=== PATIENT | male | born 1955 | race Caucasian/White ===

== ENCOUNTER 2017-10-10 08:43 | Day surgery (SDC) | payer OTHER ==
[~2017-10-10 08:43] MED LIST: ceFAZolin SODIUM 1 GM VIAL IVPB ONE
[2017-10-10 09:04] VITALS: BMI 28.8
--- NOTE | 2017-10-10 09:22 | PDOC ---
History of Present Illness - General History Source: Patient Exam Limitations: No Limitations - History of Present Illness Initial Comments: 10/10/17 09:38 The patient is a 61 year old male with a significant PMH of hyperlipidemia who was sent in by Dr. Osborn to the emergency department for pre-op. The patient states he is having surgery today to remove the hernia he has had over the past 7 months. The patient denies any pain at this time. The patient denies chest pain, shortness of breath, headache and dizziness. Denies fever, chills, nausea, vomit, diarrhea and constipation. Denies dysuria, frequency, urgency and hematuria. Allergies: NKA Past surgical history: None reported. Social history: No reported alcohol, drug, or cigarette use. <Opal Jones - Last Filed: 10/10/17 09:43> <Rayne Charles - Last Filed: 10/10/17 12:00> - General Chief Complaint: Pain, Acute Stated Complaint: SEND BY MD FOR PRE OP Time Seen by Provider: 10/10/17 09:21 Past History <Opal Jones - Last Filed: 10/10/17 09:43> - Past Medical History Hypercholesterolemia: Yes - Surgical History Abdominal Surgery: Yes Appendectomy: Yes - Suicide/Smoking/Psychosocial Hx Smoking History: Never smoked Hx Alcohol Use: No Substance Use Type: None <Rayne Charles - Last Filed: 10/10/17 12:00> - Past Medical History Allergies/Adverse Reactions: Allergies Allergy/AdvReac Type Severity Reaction Status Date / Time No Known Allergies Allergy Verified 10/10/17 09:02 Home Medications: Ambulatory Orders Cyclobenzaprine HCl [Flexeril] 5 mg PO TID PRN #12 tablet 02/12/15 Review of Systems - Review of Systems Able to Perform ROS?: Yes Comments:: 10/10/17 09:40 GENERAL/CONSTITUTIONAL: No fever or chills. No weakness. HEAD, EYES, EARS, NOSE AND THROAT: No change in vision. No ear pain or discharge. No sore throat. CARDIOVASCULAR: No chest pain or shortness of breath. RESPIRATORY: No cough, wheezing, or hemoptysis. GASTROINTESTINAL: (+) Hernia. No nausea, vomiting, diarrhea or constipation. GENITOURINARY: No dysuria, frequency, or change in urination. MUSCULOSKELETAL: No joint or muscle swelling or pain. No neck or back pain. SKIN: No rash NEUROLOGIC: No headache, vertigo, loss of consciousness, or change in strength/ sensation. ENDOCRINE: No increased thirst. No abnormal weight change. HEMATOLOGIC/LYMPHATIC: No anemia, easy bleeding, or history of blood clots. ALLERGIC/IMMUNOLOGIC: No hives or skin allergy. <Opal Jones - Last Filed: 10/10/17 09:43> *Physical Exam - Vital Signs Last Vital Signs Temp Pulse Resp BP Pulse Ox 98 F 68 19 128/87 97 10/10/17 09:02 10/10/17 09:02 10/10/17 09:02 10/10/17 09:02 10/10/17 09:02 <Opal Jones - Last Filed: 10/10/17 09:43> - Vital Signs Last Vital Signs Temp Pulse Resp BP Pulse Ox 98 F 68 19 128/87 97 10/10/17 09:02 10/10/17 09:02 10/10/17 09:02 10/10/17 09:02 10/10/17 09:02 - Physical Exam Comments: GENERAL: Awake, alert, and fully oriented, in no acute distress HEAD: No signs of trauma EYES: PERRLA, EOMI, sclera anicteric, conjunctiva clear ENT: Auricles normal inspection, hearing grossly normal, nares patent, oropharynx clear without exudates. Moist mucosa NECK: Normal ROM, supple, no lymphadenopathy, JVD, or masses LUNGS: Breath sounds equal, clear to auscultation bilaterally. No wheezes, and no crackles HEART: Regular rate and rhythm, normal S1 and S2, no murmurs, rubs or gallops ABDOMEN: Soft, nontender, normoactive bowel sounds. No guarding, no rebound. No masses EXTREMITIES: Normal range of motion, no edema. No clubbing or cyanosis. No cords, erythema, or tenderness NEUROLOGICAL: Cranial nerves II through XII grossly intact. Normal speech, normal gait SKIN: Warm, Dry, normal turgor, no rashes or lesions noted. : +Left-sided inguinal hernia, nontender. <Rayne Charles - Last Filed: 10/10/17 12:00> ED Treatment Course - LABORATORY CBC & Chemistry Diagram: 10/10/17 09:44 10/10/17 09:44 <Rayne Charles - Last Filed: 10/10/17 12:00> Medical Decision Making - Medical Decision Making 10/10/17 10:46 Case d/w Dr. Osborn. [facility]. <Rayne Charles - Last Filed: 10/10/17 12:00> *DC/Admit/Observation/Transfer - Attestations Scribe Attestion: 10/10/17 09:44 Documentation prepared by Opal Jones, acting as medical center director for Rayne Charles MD. <Opal Jones - Last Filed: 10/10/17 09:43> - Discharge Dispostion Admit: Yes <Rayne Charles - Last Filed: 10/10/17 12:00> Diagnosis at time of Disposition: Inguinal hernia Qualifiers: Obstruction and gangrene presence: without obstruction or gangrene Laterality: unilateral Recurrence: not specified as recurrent Qualified Code(s): K40.90 - Unilateral inguinal hernia, without obstruction or gangrene, not specified as recurrent - Discharge Dispostion Condition at time of disposition: Stable
[2017-10-10 10:12] LABS: EOS % 1.4 % (0-4.5); HEMATOCRIT 44.9 % (35.4-49); HEMOGLOBIN 15.2 GM/dL (11.7-16.9); LYMPH % 40.7 % (8-40); MCHC 33.9 g/dl (32.0-35.9); MEAN CELL VOLUME 91.4 fl (80-96); MEAN PLT VOLUME 9.6 fl (7.5-11.1); MONO % 5.8 % (3.8-10.2); NEUT % 51.1 % (42.8-82.8); PLATELET COUNT 216 K/MM3 (134-434); RBC 4.91 M/mm3 (4.00-5.60); RDW 13.7 % (11.9-15.9); WHITE BLOOD COUNT 7.5 K/mm3 (4.0-10.0)
[2017-10-10 10:22] LABS: INR 1.09 (0.82-1.09); PROTHROMBIN TIME (PATIENT) 12.3 SEC (9.98-11.88)
[2017-10-10 10:25] LABS: ACTIVATED PTT 32.9 SECONDS (26.9-34.4)
[2017-10-10 10:37] LABS: ALBUMIN 4.3 g/dl (3.4-5.0); ANION GAP 8 (8-16); BILIRUBIN,TOTAL 0.8 mg/dL (0.2-1.0); BLOOD UREA NITROGEN 16 mg/dL (7-18); CALCIUM 8.7 mg/dL (8.5-10.1); CHLORIDE 107 mmol/L (98-107); CO2 24 mmol/L (21-32); CREATININE 0.7 mg/dL (0.7-1.3); GLUCOSE,RANDOM 89 mg/dL (74-106); POTASSIUM 4.1 mmol/L (3.5-5.1); SGOT/AST 20 U/L (15-37); SGPT/ALT 36 U/L (12-78); SODIUM 139 mmol/L (136-145); TOT PROT 7.4 g/dl (6.4-8.2)
[2017-10-10 10:38] LABS: ALK PHOS 85 U/L (45-117)
--- NOTE | 2017-10-10 14:51 | HP ---
Satellite [facility] - Chief Complaint Chief Complaint: Left groin pain History Source: Patient, Medical Record Limitations to Obtaining History: No Limitations - Past Medical History Allergies/Adverse Reactions: Allergies Allergy/AdvReac Type Severity Reaction Status Date / Time No Known Allergies Allergy Verified 10/10/17 09:02 - Current Medications Current Medications: Home Medications Medication Instructions Recorded Docusate Sodium [Colace -] 100 mg PO TID #90 capsule 10/10/17 Oxycodone HCl/Acetaminophen 1 - 2 tab PO Q6H #28 tab MDD 4 10/10/17 [Percocet 5-325 mg Tablet] Satellite Physical Exam - Physical Examination Vital Signs: Vital Signs Period Temp Pulse Resp BP Sys/Ceron Pulse Ox Last 24 Hr 98 F 68 19 128/87 97-100 General Appearance: Calm Lung: Clear to auscultation Heart: Regular rate & rhythm Abdomen: Soft, Other (Left inguinal hernia with tenderness) Neurological: Alert, Oriented Satellite Impression/Plan - Impression/Plan Impression: Left inguinal hernia with tenderness Operative Procedure: Robotic left inguinal hernia repair with mesh Date to be Performed: 10/10/17
[2017-10-10] MEDS ORDERED: oxyCODONE HCL 5 MG TABLET PO PRN ×2 (14:52)
[2017-10-10] MEDS ORDERED: ONDANSETRON 4 MG/2 ML VIAL IVPUSH PRN (14:52)
[2017-10-10] MEDS ORDERED: DEXAMETHASONE SOD PHOSPHATE 4 MG/1 ML VIAL ONE (14:56)
[2017-10-10] MEDS ORDERED: LIDOCAINE HCL 2% 100 MG/5 ML DISP.SYRIN ONE (14:56)
[2017-10-10] MEDS ORDERED: fentaNYL CITRATE 250 MCG/5 ML VIAL ONE (14:56)
[2017-10-10] MEDS ORDERED: ROCURONIUM BROMIDE 50 MG/5 ML VIAL ONE ×2 (14:57→16:44)
[2017-10-10] MEDS ORDERED: PROPOFOL 20 ML ONE (14:57)
[2017-10-10] MEDS ORDERED: MIDAZOLAM HCL 2 MG/2 ML SINGLE DOSE VIAL ONE (14:57)
[2017-10-10] MEDS ORDERED: LACTATED RINGERS SOLUTION 1,000 ML IV SCH (15:00)
[2017-10-10] MEDS ORDERED: ePHEDrine SULFATE 50 MG/1 ML AMPULE ONE (15:55)
[2017-10-10] MEDS ORDERED: ceFAZolin SODIUM 1 GM VIAL ONE (16:02)
[2017-10-10] MEDS ORDERED: ceFAZolin SODIUM 1 GM VIAL IVPB ONE (16:05)
[2017-10-10] MEDS ORDERED: NEOSTIGMINE METHYLSULFATE 0.5 MG/ML - 10 ML MDV ONE (17:06)
[2017-10-10] MEDS ORDERED: GLYCOPYRROLATE 0.2 MG/1 ML VIAL ONE ×2 (17:06→17:12)
--- NOTE | 2017-10-10 17:21 | OP ---
Operative Note - Note: Operative Date: 10/10/17 Pre-Operative Diagnosis: Left inguinal hernia with pain Operation: Robotic left inguinal hernia repair with mesh Post-Operative Diagnosis: Same as Pre-op Siphon Operator: Domenico Chapman (claudia june) Anesthesia: General Specimens Removed: None Estimated Blood Loss (mls): 5 Operative Report Dictated: Yes
--- NOTE | 2017-10-10 17:34 | SURG ---
Surgery Medical Economics Consultant Note Medical Economics Consultant: Domenico Chapman PA-C Date of Service: 10/10/17 Diagnosis: Left inguinal hernia with pain Procedure: Robotic incarcerated left inguinal hernia repair with mesh I was present for the entirety of the operative procedure. For further detail, please refer to operative report. Visit type - Case Type Case Type: ED Admission - Emergency Emergency Visit: Yes Care time: The patient presented to the Emergency Department on the above date and was hospitalized for further evaluation of their emergent condition. - New patient This patient is new to me today: Yes Date on this admission: 10/10/17
[2017-10-10] MEDS ORDERED: KETOROLAC TROMETHAMINE 30 MG/1 ML VIAL IVPUSH ONE (17:55)
[2017-10-10] MEDS ORDERED: ACETAMINOPHEN INJECTION 100 ML IVPB ONE (17:59)
[2017-10-10] MEDS ORDERED: KETOROLAC TROMETHAMINE 30 MG/1 ML VIAL ONE (17:59)
[2017-10-10] MEDS ORDERED: ACETAMINOPHEN 1000 MG/100 ML VIAL (NON FORMULARY) IVPB ONE (18:00)
[2017-10-10 19:25] VITALS: BP 134/78; PULSE 88; TEMP 98.1
--- NOTE | 2017-10-11 08:31 | SPEC ---
DATE OF OPERATION: 10/10/2017 SURGEON: Castillo Osborn MD ASSISTANTS: DEVANTE Connor and DEVANTE Ndiaye PREOPERATIVE DIAGNOSIS: Left inguinal hernia with pain and partial incarceration. POSTOPERATIVE DIAGNOSIS: Left inguinal hernia with pain and partial incarceration. PROCEDURE: Robotic repair of partially incarcerated left inguinal hernia with mesh. Mesh is 15 x 10 cm Symbotex mesh. ANESTHESIA: GET. DRAINS: None. ESTIMATED BLOOD LOSS: 5 mL. REASON FOR PROCEDURE: This is a 61-year-old gentleman who presented to the emergency room for left groin pain. Findings were consistent with a partially reducible inguinal hernia and partial incarceration. Because of this, he has been consented for a robotic, possible open repair of his left inguinal hernia with mesh. RISKS AND BENEFITS: The risks and benefits of a robotic, possible open left inguinal hernia repair, possible bilateral inguinal hernia repair with mesh were explained. These included bleeding, infection, recurrence of hernia, MA, DVT, PE, new hernia, mesh infection, injury to surrounding structures, including the colon, bowel, bladder, ureter, spermatic cord, spermatic vessels, vas deferens, vessel injury, nerve injury, testicular injury, including testicular atrophy and possible testicular loss, and as some of the possible complications. The patient understood and signed informed consent. DESCRIPTION OF PROCEDURE: The patient was placed supine on the operating table. The patient underwent general endotracheal intubation. A Rosario catheter was inserted. The arms were tucked at the side and he was placed on a beanbag device. The abdomen was prepped and draped in the usual sterile fashion. A timeout was performed. A periumbilical incision was made and entrance into the abdominal cavity was obtained using an 8-mm robotic optical trocar under direct visualization with the laparoscope. Pneumoperitoneum was established. Subsequently, 2 additional 8-mm trocars were placed, one approximately 6 to 7 cm to the left of the umbilicus and one 6 to 7 cm to the right of the umbilicus. The patient was placed in steep Trendelenburg [id number] position. The robot was brought over the field and docked. Dissection was performed at the console. The peritoneum was opened using robotic Endo Lexus. The preperitoneal space over the left inguinal region was dissected. The epigastric vessels were identified and dissected toward the anterior abdominal wall. Dissection in the preperitoneal space was continued from the medial umbilical ligament towards the anterior-superior iliac spine. Medially, dissection was performed until Will's ligament and the pubis were identified. Lateral to this, the spermatic cord structures, including the vas deferens, were identified. The contents of the hernia sac were identified and dissected down to the retroperitoneum. At this point, hemostasis was identified. Again, all of the hernia content was noted to be completely dissected and noted to have no retraction back to its original position. A Symbotex mesh was then chosen, irrigated and inserted into the abdominal cavity to cover the entire myopectineal orifice. The mesh was secured medially at the pubis and superolaterally to the abdominal wall with sutures. The mesh was noted to be in good position. The hernia was again noted to be fully reduced and without any tension. At this point, the peritoneal flap was closed using a 2-0 V-Loc suture. Again, hemostasis was identified. All needles were removed from the field and the count was confirmed to be correct. The robotic instruments were removed. The robot was undocked and removed from the operative field. The patient was placed supine. Pneumoperitoneum was desufflated. All trocars were removed. All incision sites were irrigated and Marcaine was injected in all incision sites. Hemostasis was noted at all incision sites. All incision sites were closed using 4-0 Biosyn. Sterile dressings were applied. The Rosario catheter was removed. The patient tolerated the procedure well and was transferred to the recovery room in stable condition. Ankush [id number]
--- NOTE | 2017-10-11 17:11 | EKG ---
Test Reason : Blood Pressure : / mmHG Vent. Rate : 062 BPM Atrial Rate : 062 BPM P-R Int : 168 ms QRS Dur : 088 ms QT Int : 422 ms P-R-T Axes : 017 -27 -09 degrees QTc Int : 428 ms NORMAL SINUS RHYTHM MODERATE VOLTAGE CRITERIA FOR LVH, MAY BE NORMAL VARIANT BORDERLINE ECG NO PREVIOUS ECGS AVAILABLE Confirmed by RENATO WILKES MD ([id number]) on 10/11/2017 5:10:37 PM Referred By: Confirmed By:RENATO WILKES MD
== END 2017-10-10 19:34 | disposition home or self-care (01) ==
LOC: JER 08:43 → JASUSAT 10:52
PROVIDERS: ATTEND Surgery
PROC: 8E0W4CZ Robotic Assisted Procedure of Trunk Region, Percutaneous Endoscopic Approach (ICD-10-PCS; 2017-10-10)
PROC: 0YU64JZ Supplement Left Inguinal Region with Synthetic Substitute, Percutaneous Endoscopic Approach (ICD-10-PCS; principal; 2017-10-10 14:00)
DX: K40.30 Unilateral inguinal hernia, with obstruction, without gangrene, not specified as recurrent (principal)
CPT/HCPCS: 49650; S2900; 36415; 71045-TC-FY; 80053; 85025; 85610; 85730; 86850; 86900; 86901; 93005; 93010; 94760; 99284-25

== ENCOUNTER 2023-04-21 04:40 | Day surgery (SDC) | payer OTHER ==
[2023-04-19 10:51] VITALS: BMI 29.0
[2023-04-21 12:12] VITALS: TEMP 97.4
[2023-04-21 12:35] VITALS: BP 154/95; PULSE 62; RESP 14
== END 2023-04-21 12:45 | disposition home or self-care (01) ==
LOC: JASU-ENDO 04:40
PROVIDERS: ATTEND Internal Medicine Gastroenterology
PROC: 0DBL8ZX Excision of Transverse Colon, Via Natural or Artificial Opening Endoscopic, Diagnostic (ICD-10-PCS; principal; 2023-04-21 11:30)
DX: Z12.11 Encounter for screening for malignant neoplasm of colon (principal); K63.5 Polyp of colon; K64.8 Other hemorrhoids; Z86.010 Personal history of colon polyps
CPT/HCPCS: 88305-TC

== ENCOUNTER 2025-01-01 07:22 | Day surgery (SDC) | payer OTHER ==
[2024-12-31 15:33] VITALS: BMI 27.2
[2025-01-01 13:42] VITALS: TEMP 98
[2025-01-01 13:45] VITALS: PULSE 70
[2025-01-01 14:04] VITALS: BP 174/89; RESP 17
== END 2025-01-01 14:20 | disposition home or self-care (01) ==
LOC: JASU-ENDO 07:22
PROVIDERS: ATTEND Internal Medicine Gastroenterology
PROC: BF47ZZZ Ultrasonography of Pancreas (ICD-10-PCS; 2025-01-01)
PROC: 0FDG8ZX Extraction of Pancreas, Via Natural or Artificial Opening Endoscopic, Diagnostic (ICD-10-PCS; principal; 2025-01-01 12:00)
DX: C25.0 Malignant neoplasm of head of pancreas (principal)
CPT/HCPCS: 88305-TC

== ENCOUNTER 2025-02-24 09:58 | Day surgery (SDC) | payer OTHER ==
[2025-02-24 10:19] LABS: ABSOLUTE IMMATURE GRANULOCYTES 0.04 x10^3/uL (0.0-0.031); BASOPHILS # 0.06 x10^3/uL (0.01-0.08); EOSINOPHIL % 1.1 % (0.8-7.0); EOSINOPHILS # 0.13 x10^3/uL (0.04-0.54); MCHC 33.2 g/dl (32.3-36.5); MEAN CELL VOLUME 92.7 fl (79.0-92.2); MEAN PLT VOLUME 9.8 fl (9.4-12.4); MONOCYTE # 0.58 x10^3/uL (0.30-0.82); MONOCYTE % 4.9 % (5.3-12.2); RDW 15.4 % (12.2-16.4)
[2025-02-24] MEDS: SODIUM CHLORIDE 250 ML IV ONE (10:30)
[2025-02-24 10:46] LABS: CO2 24 mmol/L (21-32); GLUCOSE,RANDOM 150 mg/dL (74-106)
[2025-02-24 10:49] LABS: CREATININE 0.6 mg/dL (0.55-1.3); SGOT/AST 26 U/L (15-37); SGPT/ALT 60 U/L (13-61)
[2025-02-24 10:50] LABS: TOT PROT 7.1 g/dl (6.4-8.2)
[2025-02-24 10:52] LABS: ALK PHOS 140 U/L (45-117)
[2025-02-24] MEDS: GRANISETRON HCL 1 MG in SODIUM CHLORIDE 50 ML IVPB ONE (11:02)
[2025-02-24] MEDS: GEMCITABINE HCL IVPB ONE (11:35)
[2025-02-24] MEDS: SODIUM CHLORIDE IVPB ONE (11:35)
[2025-02-24 16:50] VITALS: BP 104/71; PULSE 83; RESP 20; TEMP 98.3
== END 2025-02-24 12:20 | disposition home or self-care (01) ==
LOC: JONCCHEMO 09:58 → J7W 10:00 → JONCCHEMO 12:20
PROVIDERS: ATTEND Internal Medicine Hematology & Oncology
DX: Z51.11 Encounter for antineoplastic chemotherapy (principal); C25.0 Malignant neoplasm of head of pancreas
CPT/HCPCS: 36415; 80053; 83735; 85025; 96375; 96413

== ENCOUNTER 2025-05-05 10:45 | Day surgery (SDC) | payer OTHER ==
[2025-05-05 11:24] LABS: MCHC 33.9 g/dl (32.3-36.5); MEAN CELL VOLUME 98.0 fl (79.0-92.2); MEAN PLT VOLUME 9.7 fl (9.4-12.4); RDW 18.3 % (12.2-16.4)
[2025-05-05 11:42] LABS: GLUCOSE,RANDOM 92 mg/dL (74-106); TOT PROT 8.0 g/dl (6.4-8.2)
[2025-05-05 11:44] LABS: CO2 24 mmol/L (21-32)
[2025-05-05 11:45] LABS: ALK PHOS 136 U/L (40-150)
[2025-05-05 11:48] LABS: CREATININE 0.78 mg/dL (0.55-1.3); SGOT/AST 28 U/L (5-34); SGPT/ALT 37 U/L (0-55)
[2025-05-05] MEDS: SODIUM CHLORIDE 250 ML IV ONE (11:59)
[2025-05-05] MEDS: GRANISETRON HCL 1 MG in SODIUM CHLORIDE 50 ML IVPB ONE (12:15)
[2025-05-05] MEDS: SODIUM CHLORIDE IV ONE (12:57)
[2025-05-05] MEDS: GEMCITABINE HCL IV ONE (12:57)
[2025-05-05 17:00] VITALS: TEMP 98.4
[2025-05-05 17:05] VITALS: BP 158/93; PULSE 78; RESP 18
== END 2025-05-05 13:45 | disposition home or self-care (01) ==
LOC: JONCNONCHE 10:45 → J7W 12:27 → JONCNONCHE 13:45
PROVIDERS: ATTEND Internal Medicine Hematology & Oncology
DX: Z51.11 Encounter for antineoplastic chemotherapy (principal); C25.9 Malignant neoplasm of pancreas, unspecified
CPT/HCPCS: 36415; 80053; 83735; 85025; 96375; 96413

== ENCOUNTER 2025-06-16 08:53 | Day surgery (SDC) | payer OTHER ==
[2025-06-16] MEDS: SODIUM CHLORIDE 250 ML IV ONE (09:16)
[2025-06-16 09:25] VITALS: RESP 20; TEMP 98.4
[2025-06-16 09:37] LABS: ABSOLUTE IMMATURE GRANULOCYTES 0.04 x10^3/uL (0.0-0.031); BASOPHILS # 0.04 x10^3/uL (0.01-0.08); EOSINOPHIL % 0.9 % (0.8-7.0); EOSINOPHILS # 0.07 x10^3/uL (0.04-0.54); MCHC 34.6 g/dl (32.3-36.5); MEAN CELL VOLUME 101.6 fl (79.0-92.2); MEAN PLT VOLUME 10.2 fl (9.4-12.4); MONOCYTE # 0.77 x10^3/uL (0.30-0.82); MONOCYTE % 9.4 % (5.3-12.2); RDW 19.9 % (12.2-16.4)
[2025-06-16 09:56] LABS: GLUCOSE,RANDOM 105.0 mg/dL (74-106); TOT PROT 7.3 g/dl (6.4-8.2)
[2025-06-16 09:57] LABS: CO2 23.0 mmol/L (21-32)
[2025-06-16 09:58] LABS: ALK PHOS 123.0 U/L (40-150)
[2025-06-16 10:01] LABS: SGOT/AST 34.0 U/L (5-34); SGPT/ALT 36.0 U/L (0-55)
[2025-06-16 10:02] LABS: CREATININE 0.63 mg/dL (0.55-1.3)
[2025-06-16] MEDS: GRANISETRON HCL 1 MG in SODIUM CHLORIDE 50 ML IVPB ONE (10:38)
[2025-06-16] MEDS: GEMCITABINE HCL IV ONE (11:09)
[2025-06-16] MEDS: SODIUM CHLORIDE IV ONE (11:09)
[2025-06-16 12:18] VITALS: BP 144/71; PULSE 77
== END 2025-06-16 12:15 | disposition home or self-care (01) ==
LOC: JONCCHEMO 08:53
PROVIDERS: ATTEND Internal Medicine Hematology & Oncology
DX: Z51.11 Encounter for antineoplastic chemotherapy (principal); C25.9 Malignant neoplasm of pancreas, unspecified
CPT/HCPCS: 36415; 80053; 83735; 85025; 86301